=== PATIENT | female | born 1960 | race Caucasian/White ===

== ENCOUNTER → 2017-10-27 08:04 | Outpatient (CLI) | payer MEDICARE, MEDICAID, SELFPAY ==
[2017-10-27 12:46] LABS: Chol/HDL Ratio 2.3 (1-3.5); Cholesterol 178 mg/dL (140-200); HDL Cholesterol 76 mg/dL (29-89); LDL Cholesterol 87 mg/dL (0-130); Triglycerides 73 mg/dL (30-200); VLDL Cholesterol 15 mg/dL (0-40)
== END ==
PROVIDERS: PCP Family Medicine; Visit Provider Internal Medicine
DX: M06.9 Rheumatoid arthritis, unspecified (principal); Z79.899 Other long term (current) drug therapy; Z51.81 Encounter for therapeutic drug level monitoring
CPT/HCPCS: 36415; 80061

== ENCOUNTER → 2018-02-01 07:28 | Outpatient (CLI) | payer MEDICARE, MEDICAID, SELFPAY ==
[2018-02-01 07:40] LABS: Microscopic, Urine URINE MICROSCOPIC (MICROSCOPIC)
[2018-02-01 08:06] LABS: Appearance,Urine CLEAR (Clear); Bilirubin,Urine Negative (Negative); Blood, Urine Negative (Negative); Color,Urine YELLOW (Yellow); Glucose,Urine (UA) Negative (Negative); Ketones,Urine Negative (Negative); Leukocyte Esterase,Urine Negative (Negative); Nitrate,Urine Negative (Negative); PH,Urine 6.5 (5.0-8.5); Protein,Urine Negative (Negative); Specific Gravity, Urine 1.025 (1.005-1.030); Urobilinogen,Urine 0.2 EU/dl (0.2)
[2018-02-01 08:17] LABS: Bacteria,Urine 3+ /lpf; Mucus,Urine 1+ /lpf
[2018-02-01 08:37] LABS: Basophils # 0.1 K/mm3 (0-0.2); Eosinophils # 0.7 K/mm3 (0.0-0.4); Eosinophils % 11.1 % (0.1-12.0); Lymphocytes # 2.3 K/mm3 (0.7-4.5); Lymphocytes % 34.1 % (10-50); Mean Corpuscular HGB Conc 31.9 g/dL (31.8-35.4); Mean Corpuscular Hemoglobin 29.3 pg (27.0-31.2); Mean Corpuscular Volume 91.8 fl (81-99); Mean Platelet Volume 6.7 fl (7.4-10.4); Monocytes # 0.4 K/mm3 (0.1-1.0); Monocytes % 6.2 % (1.7-9.3); Neutrophils # 3.1 K/mm3 (1.8-7.8); Neutrophils % 46.6 % (37.0-80.0); Platelet Count 258 K/mm3 (142-424); Red Blood Count 5.12 M/mm3 (4.20-5.40); Red Cell Distribution Width 14.2 % (11.5-17.5); White Blood Count 6.7 K/mm3 (4.8-10.8)
[2018-02-01 09:50] LABS: Alanine Aminotransferase 46 U/L (12-78); Albumin Level 3.9 gm/dL (3.4-5.0); Albumin/Globulin Ratio 1.4 (1.1-1.8); Alkaline Phosphatase 79 U/L (46-116); Anion Gap 14.1 mEq/L (5-15); Aspartate Amino Transferase 26 U/L (15-37); Bilirubin,Total 0.7 mg/dL (0.2-1.0); Blood Urea Nitrogen 6 mg/dL (7-18); Calcium 9.2 mg/dL (8.5-10.1); Carbon Dioxide 27 mmol/L (21.0-32.0); Chloride 106 mmol/L (98-107); Chol/HDL Ratio 2.2 (1-3.5); Cholesterol 153 mg/dL (140-200); Creatinine,Serum 0.65 mg/dL (0.55-1.02); Estimated Glomerular Filt Rate 94 ml/min (>60); Free T4 (Free Thyroxine) 0.88 ng/dl (0.76-1.46); GFR (African American) 114 ML/MIN (>60); Globulin 2.7 gm/dl (1.3-3.2); Glucose 104 mg/dL (74-106); HDL Cholesterol 69 mg/dL (29-89); LDL Cholesterol 68 mg/dL (0-130); Potassium 4.1 mmoL/L (3.5-5.1); Sodium 143 mmol/L (136-145); Total Protein,Serum 6.6 gm/dL (6.4-8.2); Triglycerides 79 mg/dL (30-200); VLDL Cholesterol 16 mg/dL (0-40)
[2018-02-04 09:34] LABS: Vitamin D 25 Hydroxy 10.3 ng/mL (30.0-100.0)
== END ==
PROVIDERS: Visit Provider Family Medicine
DX: E78.5 Hyperlipidemia, unspecified (principal); I10 Essential (primary) hypertension; R53.83 Other fatigue; R35.1 Nocturia; R73.03 Prediabetes
CPT/HCPCS: 36415; 80053; 80061; 81001; 82652; 84439; 84443; 85025; 87086

== ENCOUNTER → 2019-07-08 13:21 | Outpatient (POV) | payer MEDICARE, MEDICAID, SELFPAY | PROVIDERS: PCP Family Medicine; Visit Provider Physician Assistant | DX: Z00.00 Encounter for general adult medical examination without abnormal findings (principal) ==

== ENCOUNTER → 2019-07-15 12:23 | Outpatient (CLI) | payer MEDICARE, MEDICAID, SELFPAY ==
[2019-07-15 14:44] LABS: Alanine Aminotransferase 29 U/L (12-78); Albumin Level 4.4 g/dl (3.5-5.0); Alkaline Phosphatase 75 U/L (38-126); Aspartate Amino Transferase 33 U/L (14-36); Bilirubin,Indirect 0.4 mg/dL (0.0-0.9); Bilirubin,Total 0.4 mg/dl (0.2-1.3); Bilirubin,Unconjugated 0.4 mg/dL (0.0-1.1); Total Protein,Serum 7.1 g/dl (6.3-8.2)
== END ==
PROVIDERS: Visit Provider Internal Medicine
DX: R76.8 Other specified abnormal immunological findings in serum (principal); B19.20 Unspecified viral hepatitis C without hepatic coma
CPT/HCPCS: 36415; 80076; 87522

== ENCOUNTER → 2019-07-21 13:44 | Outpatient (CLI) | payer MEDICARE, MEDICAID, SELFPAY ==
--- NOTE | 2019-07-21 14:02 | ECG_ITS ---
APPROVED REPORT Exam: Resting ECG HR:69 bpm ECG Measurements Heart Rate 69 AXES ME 140 P 62 QRSd 114 QRS 16 QT 374 T 26 QTc 400 <Conclusion> Normal sinus rhythm Possible Left atrial enlargement Incomplete right bundle branch block ST & T wave abnormality, consider anterior ischemia vs changes due to incomplete RBBB Abnormal ECG Electronically signed by : Avinash Zavaleta, 07/21/2019 15:43:57
== END ==
PROVIDERS: PCP Family Medicine; Visit Provider Colon & Rectal Surgery
DX: Z01.818 Encounter for other preprocedural examination (principal); K62.9 Disease of anus and rectum, unspecified
CPT/HCPCS: 93005

== ENCOUNTER → 2019-12-03 14:34 | Outpatient (CLI) | payer MEDICARE, MEDICAID, SELFPAY ==
[2019-12-03 16:18] LABS: Chloride 104 mmol/L (98-107); Potassium 4.2 mmoL/L (3.5-5.1); Sodium 140 mmol/L (136-145)
[2019-12-03 16:21] LABS: Alanine Aminotransferase 26 U/L (12-78); Albumin Level 4.1 g/dl (3.5-5.0); Albumin/Globulin Ratio 1.6 (1.1-1.8); Alkaline Phosphatase 56 U/L (38-126); Anion Gap 10.2 mEq/L (5-15); Aspartate Amino Transferase 37 U/L (14-36); Bilirubin,Total 0.5 mg/dl (0.2-1.3); Blood Urea Nitrogen 12 mg/dl (7-17); Carbon Dioxide 30 mmol/L (22.0-30.0); Estimated Glomerular Filt Rate 86 ml/min (>60); GFR (African American) 104 ML/MIN (>60); Globulin 2.5 g/dL (1.3-3.2); Total Protein,Serum 6.6 g/dl (6.3-8.2)
[2019-12-03 16:22] LABS: Calcium 9.9 mg/dl (8.4-10.2); Glucose 113 mg/dl (74-100)
== END ==
PROVIDERS: Visit Provider Internal Medicine
DX: Z51.81 Encounter for therapeutic drug level monitoring (principal)
CPT/HCPCS: 36415; 80053

== ENCOUNTER → 2020-03-10 07:05 | Outpatient (CLI) | payer MEDICARE, MEDICAID, SELFPAY ==
[2020-03-10 07:09] LABS: Microscopic, Urine URINE MICROSCOPIC (MICROSCOPIC)
[2020-03-10 08:48] LABS: Basophils % 0.8 % (0.1-2.0); Eosinophils # 0.1 K/mm3 (0.0-0.4); Eosinophils % 1.9 % (0.1-12.0); Hematocrit 41.7 % (37.0-47.0); Hemoglobin 13.9 g/dL (12.2-16.2); Lymphocytes # 1.7 K/mm3 (0.7-4.5); Lymphocytes % 32.6 % (10-50); Mean Corpuscular HGB Conc 33.3 g/dL (31.8-35.4); Mean Corpuscular Hemoglobin 30.9 pg (27.0-31.2); Mean Corpuscular Volume 92.6 fl (81-99); Mean Platelet Volume 7.7 fl (7.4-10.4); Monocytes # 0.4 K/mm3 (0.1-1.0); Monocytes % 7.4 % (1.7-9.3); Neutrophils % 57.4 % (37.0-80.0); Platelet Count 352 K/mm3 (142-424); Red Blood Count 4.51 M/mm3 (4.20-5.40); White Blood Count 5.2 K/mm3 (4.8-10.8)
[2020-03-10 08:57] LABS: Appearance,Urine CLEAR (Clear); Bilirubin,Urine Negative (Negative); Blood, Urine Negative (Negative); Color,Urine YELLOW (Yellow); Glucose,Urine (UA) Negative (Negative); Ketones,Urine Negative (Negative); Leukocyte Esterase,Urine Negative (Negative); Nitrate,Urine Negative (Negative); PH,Urine 8.5 (5.0-8.5); Protein,Urine Negative (Negative); Specific Gravity, Urine 1.015 (1.005-1.030); Urobilinogen,Urine 0.2 EU/dl (0.2)
[2020-03-10 09:04] LABS: Hemoglobin A1C 5.8 % (4.0-6.0)
[2020-03-10 09:40] LABS: 25-OH Vitamin D, Total 62.8 ng/mL (30-100); Free T4 (Free Thyroxine) 0.92 ng/dl (0.78-2.19)
[2020-03-10 09:42] LABS: Squamous Epithelial Cell,Urine Occasional #/hpf (0-5)
[2020-03-10 10:23] LABS: Alanine Aminotransferase 31 U/L (12-78); Albumin Level 4.5 g/dl (3.5-5.0); Albumin/Globulin Ratio 1.6 (1.1-1.8); Alkaline Phosphatase 54 U/L (38-126); Anion Gap 10.4 mEq/L (5-15); Aspartate Amino Transferase 37 U/L (14-36); Bilirubin,Total 0.8 mg/dl (0.2-1.3); Blood Urea Nitrogen 8 mg/dl (7-17); Calcium 9.9 mg/dl (8.4-10.2); Carbon Dioxide 32 mmol/L (22.0-30.0); Chloride 104 mmol/L (98-107); Chol/HDL Ratio 2.5 (1-3.5); Cholesterol 225 mg/dl (140-200); Estimated Glomerular Filt Rate 86 ml/min (>60); GFR (African American) 104 ML/MIN (>60); Globulin 2.8 g/dL (1.3-3.2); Glucose 104 mg/dl (74-100); HDL Cholesterol 91 mg/dl (40-60); Potassium 4.4 mmoL/L (3.5-5.1); Sodium 142 mmol/L (136-145); Total Protein,Serum 7.3 g/dl (6.3-8.2); Triglycerides 137 mg/dl (30-150); VLDL Cholesterol 27 mg/dL (0-40)
[2020-03-10 10:34] LABS: Direct LDL Cholesterol 86.99 mg/dL (100-129)
[2020-03-10 10:53] LABS: Thyroid Stimulating Hormone 0.78 uIU/mL (0.465-4.68)
== END ==
PROVIDERS: Visit Provider Family Medicine
DX: Z00.00 Encounter for general adult medical examination without abnormal findings (principal); I10 Essential (primary) hypertension; E78.5 Hyperlipidemia, unspecified; R53.83 Other fatigue; M06.9 Rheumatoid arthritis, unspecified; R35.1 Nocturia; Z79.899 Other long term (current) drug therapy
CPT/HCPCS: 36415; 80053; 80061; 81001; 82306; 83036; 84439; 84443; 85025

== ENCOUNTER → 2020-08-24 09:24 | Outpatient (CLI) | payer MEDICARE, MEDICAID, SELFPAY ==
--- NOTE | 2020-08-24 09:29 | MM_ITS ---
PROCEDURE INFORMATION: Exam: MG Screening 3D Mammography Exam date and time: 08/24/2020 9:29 AM Age: 60 years old Clinical indication: Encounter for screening mammogram for malignant neoplasm of breast TECHNIQUE: Imaging protocol: Screening tomosynthesis and 2D mammography including computer-aided detection (CAD) when performed. COMPARISON: MG MM MAMMO DIGITAL DOMINIC SCREEN BILAT 07/17/2019 10:11 AM FINDINGS: MAMMOGRAPHY: Breast composition: The breast tissue is heterogeneously dense, which may obscure small masses. Mass: None. Architectural distortion: None. Calcifications: No suspicious calcifications. Asymmetric density: None. Skin thickening: None. Axillary adenopathy: None. IMPRESSION: No mammographic evidence of malignancy. Annual screening is recommended unless otherwise clinically indicated. ASSESSMENT: BI-RADS Category 1: Negative
== END ==
PROVIDERS: PCP Family Medicine; Visit Provider Family Medicine
DX: Z12.31 Encounter for screening mammogram for malignant neoplasm of breast (principal)
CPT/HCPCS: 77063; 77067

== ENCOUNTER → 2021-07-07 07:14 | Outpatient (CLI) | payer MEDICARE, MEDICAID, SELFPAY ==
[2021-07-07 07:24] LABS: Microscopic, Urine URINE MICROSCOPIC (MICROSCOPIC)
[2021-07-07 07:41] LABS: Appearance,Urine CLEAR (Clear); Bilirubin,Urine Negative (Negative); Blood, Urine Negative (Negative); Color,Urine YELLOW (Yellow); Glucose,Urine (UA) Negative (Negative); Ketones,Urine Negative (Negative); Leukocyte Esterase,Urine Negative (Negative); Nitrate,Urine Negative (Negative); Protein,Urine Negative (Negative); Specific Gravity, Urine 1.015 (1.005-1.030); Urobilinogen,Urine 0.2 EU/dl (0.2)
[2021-07-07 07:45] LABS: Basophils # 0.2 K/mm3 (0-0.2); Basophils % 5.2 % (0.1-2.0); Eosinophils # 0.1 K/mm3 (0.0-0.4); Eosinophils % 2.3 % (0.1-12.0); Hematocrit 43.9 % (37.0-47.0); Hemoglobin 14.6 g/dL (12.2-16.2); Lymphocytes # 1.2 K/mm3 (0.7-4.5); Lymphocytes % 26.7 % (10-50); Mean Corpuscular HGB Conc 33.3 g/dL (31.8-35.4); Mean Corpuscular Hemoglobin 32.3 pg (27.0-31.2); Mean Platelet Volume 7.4 fl (7.4-10.4); Monocytes # 0.4 K/mm3 (0.1-1.0); Monocytes % 8.3 % (1.7-9.3); Neutrophils # 2.9 K/mm3 (1.8-7.8); Neutrophils % 62.8 % (37.0-80.0); Platelet Count 305 K/mm3 (142-424); Red Blood Count 4.52 M/mm3 (4.20-5.40); Red Cell Distribution Width 14.1 % (11.5-17.5); White Blood Count 4.6 K/mm3 (4.8-10.8)
[2021-07-07 08:24] LABS: WBC,Urine Occasional #/hpf (0-3)
[2021-07-07 08:25] LABS: Bacteria,Urine Trace /lpf; Hemoglobin A1C 5.6 % (4.0-6.0)
[2021-07-07 08:32] LABS: Chloride 106 mmol/L (98-107); Sodium 140 mmol/L (136-145)
[2021-07-07 08:33] LABS: Potassium 4.4 mmoL/L (3.5-5.1)
[2021-07-07 08:35] LABS: Alanine Aminotransferase 30 U/L (12-78); Anion Gap 10.4 mEq/L (5-15); Aspartate Amino Transferase 36 U/L (14-36); Blood Urea Nitrogen 14 mg/dl (7-17); Carbon Dioxide 28 mmol/L (22.0-30.0); Estimated Glomerular Filt Rate 85 ml/min (>60); GFR (African American) 103 ML/MIN (>60)
[2021-07-07 08:36] LABS: Albumin Level 4.2 g/dl (3.5-5.0); Albumin/Globulin Ratio 1.8 (1.1-1.8); Alkaline Phosphatase 78 U/L (38-126); Bilirubin,Total 0.7 mg/dl (0.2-1.3); Calcium 10.1 mg/dl (8.4-10.2); Cholesterol 247 mg/dl (140-200); Globulin 2.4 g/dL (1.3-3.2); Glucose 118 mg/dl (74-100); Total Protein,Serum 6.6 g/dl (6.3-8.2); Triglycerides 118 mg/dl (30-150); VLDL Cholesterol 24 mg/dL (0-40)
[2021-07-07 08:44] LABS: Chol/HDL Ratio 2.3 (1-3.5); HDL Cholesterol 109 mg/dl (40-60)
[2021-07-07 08:53] LABS: Free T4 (Free Thyroxine) 0.88 ng/dl (0.78-2.19)
[2021-07-07 09:06] LABS: Thyroid Stimulating Hormone 0.85 uIU/mL (0.465-4.68)
[2021-07-07 09:39] LABS: 25-OH Vitamin D, Total 50.6 ng/mL (30-100)
== END ==
PROVIDERS: Visit Provider Family Medicine
DX: I10 Essential (primary) hypertension (principal); E78.5 Hyperlipidemia, unspecified; R53.83 Other fatigue; M06.9 Rheumatoid arthritis, unspecified; R35.1 Nocturia; Z79.899 Other long term (current) drug therapy
CPT/HCPCS: 36415; 80053; 80061; 81001; 82306; 83036; 84439; 84443; 85025

== ENCOUNTER → 2021-07-08 08:19 | Outpatient (CLI) | payer MEDICARE, MEDICAID, SELFPAY ==
--- NOTE | 2021-07-08 08:23 | CT_ITS ---
FINAL REPORT CLINICAL HISTORY: . HX SMOKER QUIT 13 YEARS AGO 1.5PPD 21+ YEARS FINDINGS: Low-Dose Chest CT CTDI vol (mGy): 2.90 DLP (mGy-cm): 96.90 Axial images were obtained from the lung apex to the mid abdomen by computed tomography. Low-dose protocol was utilized. FINDINGS: CHEST: There is no axillary adenopathy. There is no hilar or mediastinal adenopathy. There is a pre-vascular lymph node measuring 1 cm on image 29. The heart is proper size. There are moderate coronary artery calcifications. There is no pericardial or pleural effusion. Limited images of the upper abdomen are unremarkable. Lung window images demonstrate a 4 mm nodule in the periphery of the right upper lobe on images 16 of series 4. There is a 4 mm nodule in the posterior right apex on image 9 of series 4. IMPRESSION: Right upper lobe nodules as described. Lung RADS category 2. Recommend 12 month follow-up low-dose chest CT. Reviewed, Interpreted and Dictated by Zack Hudson MD Transcribed by Ade Sutton Authenticated by Zack Hudson MD on 07/08/2021 09:18:10 AM [facility]
--- NOTE | 2021-07-08 08:24 | XR_ITS ---
FINAL REPORT TECHNIQUE: Bone densitometry calculations of the lumbar spine and left hip were obtained. CLINICAL HISTORY: . post menopausal screening FINDINGS: DEXA BONE DENSITY AXIAL SKELETON Using L1-4, the bone mineral density of the spine is 0.758 g/cm2, corresponding to T-score of -2.6. Using the left hip, the bone mineral density of the femoral neck is 0.603 g/cm2, corresponding to a T-score of -2.8. Using the right hip, the bone mineral density of the femoral neck is 0.539 g/cm2, corresponding to a T-score of -2.8. NOTE: T-score: Standard deviation compared with peak bone mass of young adult mean. *Following the recommendations of the International Society of Bone Densitometry, classification of hip BMD is based on the lower of two T-scores; total hip or femoral neck. IMPRESSION: Osteoporosis: Lowest T-score is at or below -2.5. This patient's T-score meets the World Health Organization criteria for osteoporosis. Reviewed, Interpreted and Dictated by Zack Hudson MD Transcribed by Ade Sutton Authenticated by Zack Hudson MD on 07/08/2021 10:42:29 AM [facility]
== END ==
PROVIDERS: PCP Family Medicine; Visit Provider Family Medicine
DX: Z87.891 Personal history of nicotine dependence (principal); Z12.2 Encounter for screening for malignant neoplasm of respiratory organs; Z78.0 Asymptomatic menopausal state
CPT/HCPCS: 71271; 77080

== ENCOUNTER → 2021-09-16 09:50 | Outpatient (CLI) | payer MEDICARE, MEDICAID, SELFPAY ==
--- NOTE | 2021-09-16 09:55 | MM_ITS ---
PROCEDURE INFORMATION: Exam: MG Bilateral Screening 3D Mammography Exam date and time: 09/16/2021 9:52 AM Age: 61 years old Clinical indication: Screening examination TECHNIQUE: Imaging protocol: Bilateral Screening tomosynthesis and 2D mammography including computer-aided detection (CAD) when performed. COMPARISON: 1. MG MM DIG SCREENING MAMM BI W/CAD 08/24/2020 9:32 AM 2. MG MM MAMMO DIGITAL DOMINIC SCREEN BILAT 07/17/2019 10:11 AM FINDINGS: MAMMOGRAPHY: Breast composition: There are scattered areas of fibroglandular density. Mass: None. Architectural distortion: None. Calcifications: No suspicious calcifications. Asymmetric density: None. Skin thickening: None. Axillary adenopathy: None. IMPRESSION: No mammographic evidence of malignancy. Annual screening is recommended unless otherwise clinically indicated. ASSESSMENT: BI-RADS Category 1: Negative
== END ==
PROVIDERS: PCP Family Medicine; Visit Provider Family Medicine
DX: Z12.31 Encounter for screening mammogram for malignant neoplasm of breast (principal)
CPT/HCPCS: 77063; 77067

== ENCOUNTER → 2022-03-09 06:27 | Outpatient (CLI) | payer MEDICARE, MEDICAID, SELFPAY ==
[2022-03-09 08:21] LABS: Basophils # 0.1 K/mm3 (0-0.2); Basophils % 1.2 % (0.1-2.0); Eosinophils # 0.1 K/mm3 (0.0-0.4); Eosinophils % 1.8 % (0.1-12.0); Hematocrit 42.3 % (37.0-47.0); Hemoglobin 13.3 g/dL (12.2-16.2); Lymphocytes # 1.4 K/mm3 (0.7-4.5); Lymphocytes % 33.4 % (10-50); Mean Corpuscular HGB Conc 31.4 g/dL (31.8-35.4); Mean Corpuscular Hemoglobin 29.6 pg (27.0-31.2); Mean Corpuscular Volume 94.3 fl (81-99); Monocytes # 0.4 K/mm3 (0.1-1.0); Monocytes % 9.4 % (1.7-9.3); Neutrophils # 2.3 K/mm3 (1.8-7.8); Neutrophils % 54.3 % (37.0-80.0); Platelet Count 407 K/mm3 (142-424); Red Blood Count 4.48 M/mm3 (4.20-5.40); Red Cell Distribution Width 13.9 % (11.5-17.5); White Blood Count 4.2 K/mm3 (4.8-10.8)
[2022-03-09 08:40] LABS: Chloride 105 mmol/L (98-107); Potassium 4.4 mmoL/L (3.5-5.1); Sodium 142 mmol/L (136-145)
[2022-03-09 08:42] LABS: Blood Urea Nitrogen 12 mg/dl (7-17); Estimated Glomerular Filt Rate 85 ml/min (>60); GFR (African American) 103 ML/MIN (>60)
[2022-03-09 08:43] LABS: Alanine Aminotransferase 28 U/L (12-78); Albumin Level 4.2 g/dl (3.5-5.0); Albumin/Globulin Ratio 1.8 (1.1-1.8); Alkaline Phosphatase 59 U/L (38-126); Anion Gap 11.4 mEq/L (5-15); Aspartate Amino Transferase 32 U/L (14-36); Bilirubin,Total 0.4 mg/dl (0.2-1.3); Calcium 9.4 mg/dl (8.4-10.2); Carbon Dioxide 30 mmol/L (22.0-30.0); Cholesterol 220 mg/dl (140-200); Globulin 2.4 g/dL (1.3-3.2); Glucose 90 mg/dl (74-100); HDL Cholesterol 74 mg/dl (40-60); Total Protein,Serum 6.6 g/dl (6.3-8.2); Triglycerides 62 mg/dl (30-150); VLDL Cholesterol 12 mg/dL (0-40)
[2022-03-09 08:54] LABS: Direct LDL Cholesterol 103.42 mg/dL (100-129)
[2022-03-09 09:14] LABS: Thyroid Stimulating Hormone 0.28 uIU/mL (0.465-4.68)
[2022-03-14 23:43] LABS: 1,25 Dihydroxy Vitamin D 52 pg/mL (.); 1,25-Dihydroxy, Vitamin D-2 <10 pg/mL (.); 1,25-Dihydroxy, Vitamin D-3 51 pg/mL (.)
== END ==
PROVIDERS: PCP Family Medicine; Visit Provider Family Medicine
DX: M81.0 Age-related osteoporosis without current pathological fracture (principal); I10 Essential (primary) hypertension; E78.5 Hyperlipidemia, unspecified; J44.9 Chronic obstructive pulmonary disease, unspecified; M06.9 Rheumatoid arthritis, unspecified; R91.1 Solitary pulmonary nodule; Z12.11 Encounter for screening for malignant neoplasm of colon
CPT/HCPCS: 36415; 80053; 80061; 82652; 84443; 85025

== ENCOUNTER → 2022-06-16 09:56 | Outpatient (CLI) | payer MEDICARE, MEDICAID, SELFPAY ==
[2022-06-16 11:03] LABS: Alanine Aminotransferase 50 U/L (12-78); Albumin Level 4.5 g/dl (3.5-5.0); Albumin/Globulin Ratio 1.9 (1.1-1.8); Alkaline Phosphatase 85 U/L (38-126); Anion Gap 7.6 mEq/L (5-15); Aspartate Amino Transferase 57 U/L (14-36); Bilirubin,Total 0.9 mg/dl (0.2-1.3); Blood Urea Nitrogen 13 mg/dl (7-17); Calcium 9.6 mg/dl (8.4-10.2); Carbon Dioxide 28 mmol/L (22.0-30.0); Chloride 105 mmol/L (98-107); Cholesterol 195 mg/dl (140-200); Estimated Glomerular Filt Rate 85 ml/min (>60); GFR (African American) 103 ML/MIN (>60); Globulin 2.4 g/dL (1.3-3.2); Glucose 103 mg/dl (74-100); HDL Cholesterol 96 mg/dl (40-60); Potassium 4.6 mmoL/L (3.5-5.1); Sodium 136 mmol/L (136-145); Total Protein,Serum 6.9 g/dl (6.3-8.2); Triglycerides 75 mg/dl (30-150); VLDL Cholesterol 15 mg/dL (0-40)
[2022-06-16 11:15] LABS: Direct LDL Cholesterol 78.23 mg/dL (100-129)
[2022-06-16 11:35] LABS: Thyroid Stimulating Hormone 0.41 uIU/mL (0.465-4.68)
== END ==
PROVIDERS: PCP Family Medicine; Visit Provider Family Medicine
DX: E78.5 Hyperlipidemia, unspecified (principal); I10 Essential (primary) hypertension; J44.9 Chronic obstructive pulmonary disease, unspecified; M06.9 Rheumatoid arthritis, unspecified; M81.0 Age-related osteoporosis without current pathological fracture; R91.1 Solitary pulmonary nodule
CPT/HCPCS: 36415; 80053; 80061; 84443

== ENCOUNTER → 2022-07-18 14:32 | Outpatient (CLI) | payer MEDICARE, MEDICAID, SELFPAY ==
--- NOTE | 2022-07-18 14:32 | CT_ITS ---
FINAL REPORT TECHNIQUE: Axial CT images were performed from the lung apices through the upper abdomen. Coronal reformats were submitted. This study was performed with techniques to keep radiation doses as low as reasonably achievable (ALARA). Individualized dose reduction techniques using automated exposure control or adjustment of mA and/or kV according to the patient's size were employed. CLINICAL HISTORY: lung nudule COMPARISON: 07/08/2021 FINDINGS: There is no axillary adenopathy. There is a 10 mm node in the anterior mediastinum which is stable. There is moderate coronary artery calcification. Heart size is normal. There is no pericardial or pleural effusion. Limited images of the upper abdomen are unremarkable. There is a stable 4 mm lateral right upper lobe nodule well seen on image 15. There is a stable 4 mm nodule in the right apex. There are subacute right 4th and 5th anterior rib fractures. There is also a subacute left 6th lateral rib fracture. IMPRESSION: Stable nodules as detailed above. Subacute bilateral rib fractures. Reviewed, Interpreted and Dictated by Raheem Gr III, MD Transcribed by Ruchi Nguyễn Authenticated and [facility]
== END ==
PROVIDERS: PCP Nurse Practitioner Family; Visit Provider Family Medicine
DX: R91.1 Solitary pulmonary nodule (principal)
CPT/HCPCS: 71250

== ENCOUNTER → 2022-09-20 15:47 | Outpatient (CLI) | payer MEDICARE, MEDICAID, SELFPAY ==
--- NOTE | 2022-09-20 15:49 | MM_ITS ---
PROCEDURE INFORMATION: Exam: MG Bilateral Screening 3D Mammography Exam date and time: 09/20/2022 3:44 PM Age: 62 years old Clinical indication: Screening examination TECHNIQUE: Imaging protocol: Bilateral Screening tomosynthesis and 2D mammography including computer-aided detection (CAD) when performed. COMPARISON: 1. MG MM DIG SCREENING MAMM BI W/CAD 09/16/2021 9:52 AM 2. MG MM DIG SCREENING MAMM BI W/CAD 08/24/2020 9:32 AM FINDINGS: MAMMOGRAPHY: Breast composition: The breasts are heterogeneously dense, which may obscure small masses. Mass: None. Architectural distortion: None. Calcifications: No suspicious calcifications. Asymmetric density: None. Skin thickening: None. Axillary adenopathy: None. IMPRESSION: No mammographic evidence of malignancy. Annual screening is recommended unless otherwise clinically indicated. ASSESSMENT: BI-RADS Category 1: Negative
== END ==
PROVIDERS: PCP Nurse Practitioner Family; Visit Provider Nurse Practitioner Family
DX: Z12.31 Encounter for screening mammogram for malignant neoplasm of breast (principal)
CPT/HCPCS: 77063; 77067

== ENCOUNTER → 2022-10-04 07:23 | Outpatient (CLI) | payer MEDICARE, MEDICAID, SELFPAY ==
[2022-10-04 09:19] LABS: Alanine Aminotransferase 29 U/L (12-78); Albumin Level 3.9 g/dl (3.5-5.0); Albumin/Globulin Ratio 1.6 (1.1-1.8); Alkaline Phosphatase 63 U/L (38-126); Anion Gap 7.7 mEq/L (5-15); Aspartate Amino Transferase 34 U/L (14-36); Bilirubin,Total 0.4 mg/dl (0.2-1.3); Blood Urea Nitrogen 8 mg/dl (7-17); Calcium 9.2 mg/dl (8.4-10.2); Carbon Dioxide 32 mmol/L (22.0-30.0); Chloride 108 mmol/L (98-107); Cholesterol 198 mg/dl (140-200); Estimated Glomerular Filt Rate 101 ml/min (>60); GFR (African American) 123 ML/MIN (>60); Globulin 2.4 g/dL (1.3-3.2); Glucose 94 mg/dl (74-100); HDL Cholesterol 101 mg/dl (40-60); Potassium 4.7 mmoL/L (3.5-5.1); Sodium 143 mmol/L (136-145); Total Protein,Serum 6.3 g/dl (6.3-8.2); Triglycerides 64 mg/dl (30-150); VLDL Cholesterol 13 mg/dL (0-40)
[2022-10-04 09:31] LABS: Direct LDL Cholesterol 86.65 mg/dL (100-129)
[2022-10-04 10:19] LABS: Thyroid Stimulating Hormone 0.73 uIU/mL (0.465-4.68)
== END ==
PROVIDERS: PCP Nurse Practitioner Family; Visit Provider Family Medicine
DX: I10 Essential (primary) hypertension (principal); R79.89 Other specified abnormal findings of blood chemistry; E78.5 Hyperlipidemia, unspecified
CPT/HCPCS: 36415; 80053; 80061; 84443

== ENCOUNTER → 2022-10-11 07:35 | Outpatient (CLI) | payer MEDICARE, MEDICAID, SELFPAY ==
--- NOTE | 2022-10-11 07:35 | NM_ITS ---
APPROVED REPORT Exam: Nuclear Stress Test Indication: soa Patient Location: Outpatient Stress Tech: Sommer Cam PR Tech:DUC Verde RT(R)(N) Ht: 5 ft 0 in Wt: 130 lbs Bra Size: 38b HR: 74 bpm BP: 160/70 mmHg BSA: 1.55 m2 Rhythm: NSR TID: 1.13 History: soa Procedure: Patient exercised on Erik protocol 6:31 minutes and sec, resting heart rate 74 bpm, resting blood pressure 160/70 mmHg, with exercise maximum heart rate achived was 158 bpm which is 100 % of the maximum predicted heart rate and blood pressure was 250/70 mmHg. Test was stopped due to high blood pressure. Patient denied any complaint of chest pain. Patient has poor exercise capacity, achieved 7.0 METs of workload on treadmill, the blood pressure response to exercise was exaggerated. Cardiac Stress and Resting SPECT Images: Cardiac Stress and Resting SPECT images were obtained using technetium 99m Myoview 31.3 mCi stress and 10.09 mCi at rest. Resting and stress imaging in both supine and prone positions demonstrate a small-sized, mild, fixed perfusion defect in the mid-inferior LV wall. Gated imaging demonstrates normal global and regional LV systolic function. LVEF is calculated at 56%. Conclusion: Small-sized, mild, fixed perfusion defect in the mid-inferior LV wall. No evidence of reversible ischemia. Gated imaging demonstrates normal global and regional LV systolic function. LVEF is calculated at 56%. Electronically signed by : Sarah Crawford, 10/14/2022 17:00:44
--- NOTE | 2022-10-11 09:44 | CA_ITS ---
APPROVED REPORT Exam: Exercise Treadmill Technologist: Sommer Arceo, Ht: 5 ft 0 in Wt: 132 lbs BSA: 1.56 m2 HR: 70 bpm BP: 145/65 mmHg Rhythm: NSR Medical History Medications: Amlodipine,,,,, Atorvastatin,,,,, Albuterol,,,,, Leflunomide,,,,, ANoro Ellipta,,,,, Imiquimod 3.75%,,,,, Upadacitinin ER,,,,, Stress Test Details Test: Erik HR Resting HR: 74 bpm Max Heart Rate (APMHR): 158 bpm Max HR Achieved: 158 bpm Target HR (85% APMHR): 134 bpm % of APMHR: 100 Recovery HR: 85 bpm HR response to stress: Normal HR response to stress BP Resting BP: 160.0/70.0 mmHg Max BP: 250.0/70.0 mmHg Recovery BP: 137.0/60.0 mmHg BP response to stress: Abnormal hypertensive response to stress. ECG Resting ECG: NSR, RBBB Stress ECG: < 1mm ST depression in inferior leads Arrhythmia: PVCs, ventricular triplet Recovery ECG: Return to baseline within 3 minutes of recovery Recovery Arrhythmia: PVCs Clinical Exercise duration: 06:31 min Highest Stage Achieved: III Exercise capacity: 7.0 METs Overall Exercise Capacity for Age: Poor Stress ECG Conclusion The patient was able to exercise for a total of 6:30 on Erik protocol. Stage II held to completion. She achieved a total of 7 METs. She has poor exercise capacity compared to age and sex matched peers. Test was stopped due to excessively high BP. She has normal HR, but exaggerated BP, response to exercise. Max HR: 145 % of PM: 92% Max BP: 250/70 mmHg METs 7.0 Test stopped due to: Blood pressure. SOA Symptoms: No CP. Arrhythmias/Ectopy: Rare PAC. Occ PVC. [address]-T Changes: < 1mm horizontal ST depression inferiorly. Conclusion: Poor exercise capacity. Equivocal EKG changes with no CP. Ventricular triplet was noted at peak stress. Exaggerated BP response to exercise. Myoview images reported separately. Test Summary REST . . . . . . . Sitting REST . . . . . . . Standing REST 04:51 0.0 0.0 74 . 160/ 70 . . Stage 1 01:00 10.0 1.7 95 . . . . Stage 1 02:00 10.0 1.7 107 . . . . Stage 1 03:00 10.0 1.7 110 . . . . Stage 2 01:00 12.0 2.5 119 . 230/ 70 . . Stage 2 02:00 12.0 2.5 126 . 230/ 70 . . Stage 2 . . . . . . . Stage held Stage 2 03:00 12.0 2.5 132 . 250/ 70 . . Stage 2 . . . . . . . Stage resumed Stage 2 03:31 12.0 2.5 158 . 250/ 70 . Stop exercise at 06:31 RECOVERY 01:00 0.0 0.0 132 . . . . RECOVERY 02:00 0.0 0.0 106 . . . . RECOVERY 03:00 0.0 0.0 85 . 194/ 73 . . RECOVERY 04:00 0.0 0.0 98 . 150/ 61 . . RECOVERY 05:00 0.0 0.0 85 . 137/ 60 . . RECOVERY 06:00 0.0 0.0 82 . 137/ 60 . . RECOVERY 07:00 0.0 0.0 78 . 137/ 60 . . RECOVERY 07:25 0.0 0.0 82 . 137/ 60 . . Electronically signed by : Sarah Crawford, 10/14/2022 16:57:41
== END ==
PROVIDERS: PCP Nurse Practitioner Family; Visit Provider Nurse Practitioner Family
DX: I25.10 Atherosclerotic heart disease of native coronary artery without angina pectoris (principal); R06.02 Shortness of breath
CPT/HCPCS: 78452; 93017; A9502

== ENCOUNTER → 2022-11-08 11:29 | Outpatient (CLI) | payer MEDICARE, MEDICAID, SELFPAY ==
--- NOTE | 2022-11-08 11:31 | CA_ITS ---
APPROVED REPORT EXAM: Comprehensive 2D, Doppler, and color-flow Echocardiogram Java Integration Developer: Deedee Ward, CIERRA, RVS Ht: 5 ft 0 in Wt: 132lbs BSA: 1.56 BP: 154/73 mmHg Indications: COPD, SOA, Smoker, Abn Stress test 2D Dimensions Aortic Root 2.76 cm LA Volume 37.60 mL Left Atrium 3.08 cm LA Volume Index 24.430757 mL/m2 (M/F) 16-34 LVOT 1.64 cm (M/F) 1.5-2.5 M-Mode Dimensions RVDd 1.34 cm (0.9-2.6) LA Diam 3.53 cm (1.9-4.0) LVDd 4.94 cm (3.5-5.7) Ao Diam 2.94 cm (2.0-3.7) LVDs 3.32 cm (3.5-5.7) IVSd 1.11 cm (0.6-1.1) PWd 1.11 cm (0.6-1.1) EF (Teich) 61.00% EPSs 1.01 cm FS 32.80% EDV (Teich) 115.00 mL TAPSE 1.68 (<1.7) ESV (Teich) 44.80 mL LV Diastology E Decel Time 180.00 (160-240 msec) E/A Ratio 1.97 MED E' 9.20 (< 7 cm/sec) MED A' 7.70 cm/s E'/MED E' Ratio 12.58 (>14) LAT E' 9.40 (<10 cm/sec) LAT A' 6.30 cm/s E/LAT E' Ratio 12.31 (>14) Aortic Valve LVOT Max 114.00 (70-110 cm/s) LVOT VTI 24.68 cm AoV Peak Graham. 121.00 (50-130 cm/s) AO Peak GR. 5.80 mmHg AO Mean GR. 2.90 (<5 mmHg) AO VTI 29.68 (18-25 cm) ZOILA (VTI) 1.76 (2.5-4.5 cm2) Mitral Valve MV A Velocity 59.00 (40-130 cm/s) E/A Ratio 1.97 MV Decel. Time 180.00 (160-240 ms) MV Mean Gr. 1.20 (<2mmHg) Pulmonary Valve PV Peak Velocity 71.00 (50-150 cm/s) Tricuspid Valve TR P. Velocity 243.00 cm/s RAP Estimate 10.00 mmHg RVSP 33.60 mmHg Left Ventricle The left ventricle is normal size. The left ventricular systolic function is normal. The left ventricular ejection fraction is within the normal range. There is normal left ventricular wall thickness. There is mild hypokinesis of the septal and inferoseptal LV reardon. The left ventricular diastolic function is normal. LVEF is 55%. Right Ventricle The right ventricle is normal size. The right ventricular systolic function is normal. Atria The left atrium size is normal. The right atrium size is normal. There is no Doppler evidence of interatrial shunt. Aortic Valve The aortic valve is mildly thickened. There is no aortic valvular stenosis. Trace aortic regurgitation. Mitral Valve The mitral valve is normal in structure. No evidence of mitral valve stenosis. Mild mitral regurgitation. Tricuspid Valve The tricuspid valve leaflets are thin and pliable. Mild tricuspid regurgitation. RVSP is 20-25 mmHg. Pulmonic Valve The pulmonary valve is normal in structure. Trace pulmonic regurgitation. Great Vessels The aortic root is normal in size. The ascending aorta is normal in size. IVC is normal in size and collapses >50% with inspiration. Pericardium There is no pericardial effusion. Other Information Study Quality: Fair Conclusion Normal biventricular systolic function. Mild hypokinesis of the septal and inferoseptal LV reardon. Mild MR. Mild TR. RVSP 20-25 mmHg. Electronically signed by : Sarah Crawford, 11/13/2022 23:39:00
== END ==
PROVIDERS: PCP Nurse Practitioner Family; Visit Provider Nurse Practitioner Family
DX: I25.10 Atherosclerotic heart disease of native coronary artery without angina pectoris (principal); R06.02 Shortness of breath
CPT/HCPCS: 93306

== ENCOUNTER 2022-11-15 07:39 | Day surgery (SDC) | payer MEDICARE, MEDICAID, SELFPAY ==
[2022-11-15] VITALS (11 sets, daily range): BP systolic 99–143; BP diastolic 46–80; PULSE 48–99; RESP 16–20; O2SAT 94–99; BMI 25.7
--- NOTE | 2022-11-15 07:08 | IR_ITS ---
APPROVED REPORT Patient Location: Outpatient PROCEDURES Left heart catheterization Left ventriculogram Selective coronary angiogram INDICATION Abnormal Myoview, Angina pectoris Informed consent was obtained prior to the procedure. COMPLICATIONS None Estimated Blood Loss: Less than 10 mls TECHNIQUE One percent lidocaine used to anesthetize the right anterior aspect of the wrist. The right radial artery was accessed via the Seldinger technique. A 6 Pakistani sheath was placed in the right radial artery. 2.5 mg of Verapamil, 800 mcg of nitroglycerin, 1mg Lidocaine and 5000 U Heparin were given through the arterial sheath. The papa catheter was also used to perform left heart catheterization, left ventriculogram and selective coronary angiogram. At the end of the procedure the sheath was removed good hemostasis was achieved using Traclet band, patient was transferred to the postop holding area in stable condition. ANGIOGRAPHIC RESULTS The left main artery Normal The left anterior descending artery The proximal mid and distal segments are free of atherosclerotic plaque. 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 Continue medical management Electronically signed by : Khoa Vargas MD 11/15/2022 09:34:47
[2022-11-15 08:43] LABS: Anion Gap 10.3 mEq/L (5-15); Basophils % 0.6 % (0.1-2.0); Blood Urea Nitrogen 12 mg/dl (7-17); Calcium 9.3 mg/dl (8.4-10.2); Carbon Dioxide 30 mmol/L (22.0-30.0); Chloride 106 mmol/L (98-107); Creatinine Clearance Estimated 55 mL/min (50-200); Eosinophils # 0.1 K/mm3 (0.0-0.4); Eosinophils % 1.2 % (0.1-12.0); Estimated Glomerular Filt Rate 73 ml/min (>60); GFR (African American) 88 ML/MIN (>60); Glucose 106 mg/dl (74-100); Hematocrit 43.3 % (37.0-47.0); Hemoglobin 13.5 g/dL (12.2-16.2); Lymphocytes # 1.5 K/mm3 (0.7-4.5); Lymphocytes % 20.1 % (10-50); Mean Corpuscular HGB Conc 31.2 g/dL (31.8-35.4); Mean Corpuscular Hemoglobin 29.9 pg (27.0-31.2); Mean Corpuscular Volume 95.8 fl (81-99); Mean Platelet Volume 7.9 fl (7.4-10.4); Monocytes # 0.6 K/mm3 (0.1-1.0); Monocytes % 7.8 % (1.7-9.3); Neutrophils # 5.3 K/mm3 (1.8-7.8); Neutrophils % 70.4 % (37.0-80.0); Platelet Count 290 K/mm3 (142-424); Potassium 4.3 mmoL/L (3.5-5.1); Red Blood Count 4.52 M/mm3 (4.20-5.40); Red Cell Distribution Width 13.6 % (11.5-17.5); Sodium 142 mmol/L (136-145); White Blood Count 7.6 K/mm3 (4.8-10.8)
== END 2022-11-15 12:20 | disposition home or self-care (01) ==
PROVIDERS: PCP Nurse Practitioner Family; Visit Provider Internal Medicine
DX: E78.5 Hyperlipidemia, unspecified (principal); I10 Essential (primary) hypertension; J44.9 Chronic obstructive pulmonary disease, unspecified; R06.02 Shortness of breath; I25.118 Atherosclerotic heart disease of native coronary artery with other forms of angina pectoris; Z79.899 Other long term (current) drug therapy
CPT/HCPCS: 80048; 85025; 93458; 99152; C1725; C1769; J1644; Q9967

== ENCOUNTER → 2023-01-04 12:23 | Outpatient (CLI) | payer MEDICARE, SELFPAY ==
[2023-01-04 13:20] VITALS: PULSE 56; PULSE 62
== END ==
LOC: RT 12:23
PROVIDERS: PCP Nurse Practitioner Family; Visit Provider Internal Medicine Pulmonary Disease
DX: R06.09 Other forms of dyspnea (principal)
CPT/HCPCS: 94060; 94618; 94640; 94727; 94729

== ENCOUNTER 2023-05-10 16:59 | Outpatient (CLI) | payer MEDICARE, SELFPAY ==
[2023-05-10 17:44] LABS: Amphetamine/Metha Screen,Urine Negative ng/ml (<1000)
[2023-05-10 17:45] LABS: Barbiturates Screen,Urine Negative ng/ml (<200); Benzodiazepines Screen,Urine Negative ng/ml (<200)
[2023-05-10 17:46] LABS: Cannabinoid Screen,Urine Positive ng/ml (<50); Cocaine Screen,Urine Negative ng/ml (<300)
[2023-05-10 17:47] LABS: Methadone Screen,Urine Negative ng/ml (<300)
[2023-05-10 17:48] LABS: Opiate Screen,Urine Negative ng/ml (<300); Phencyclidine Screen,Urine Negative ng/ml (<25)
== END 2023-05-10 23:59 ==
LOC: LAB.DROPOF 17:00
PROVIDERS: PCP Nurse Practitioner Obstetrics & Gynecology; Visit Provider Nurse Practitioner Obstetrics & Gynecology
DX: Z79.899 Other long term (current) drug therapy (principal)
CPT/HCPCS: 80307

== ENCOUNTER 2023-06-07 16:17 | Outpatient (CLI) | payer MEDICARE, SELFPAY ==
[2023-06-07 18:13] LABS: Benzodiazepines Screen,Urine Negative ng/ml (<200)
[2023-06-07 18:14] LABS: Amphetamine/Metha Screen,Urine Negative ng/ml (<1000); Barbiturates Screen,Urine Negative ng/ml (<200)
[2023-06-07 18:15] LABS: Cannabinoid Screen,Urine Positive ng/ml (<50)
[2023-06-07 18:16] LABS: Cocaine Screen,Urine Negative ng/ml (<300); Methadone Screen,Urine Negative ng/ml (<300)
[2023-06-07 18:17] LABS: Opiate Screen,Urine Negative ng/ml (<300)
[2023-06-07 18:18] LABS: Phencyclidine Screen,Urine Negative ng/ml (<25)
== END 2023-06-07 23:59 ==
LOC: LAB.DROPOF 16:17
PROVIDERS: PCP Nurse Practitioner Obstetrics & Gynecology; Visit Provider Nurse Practitioner Obstetrics & Gynecology
DX: Z79.899 Other long term (current) drug therapy (principal)
CPT/HCPCS: 80307

== ENCOUNTER 2023-12-11 14:39 | Outpatient (CLI) | payer MEDICARE, SELFPAY ==
[2023-12-11 15:12] LABS: Basophils # 0.1 K/mm3 (0-0.2); Basophils % 1.4 % (0.1-2.0); Eosinophils # 0.1 K/mm3 (0.0-0.4); Hematocrit 38.3 % (37.0-47.0); Hemoglobin 13.1 g/dL (12.2-16.2); Lymphocytes # 2.3 K/mm3 (0.7-4.5); Mean Corpuscular HGB Conc 34.2 g/dL (31.8-35.4); Mean Corpuscular Hemoglobin 31.2 pg (27.0-31.2); Mean Corpuscular Volume 91.2 fl (81-99); Mean Platelet Volume 6.7 fl (7.4-10.4); Monocytes # 0.3 K/mm3 (0.1-1.0); Monocytes % 5.4 % (1.7-9.3); Neutrophils # 2.1 K/mm3 (1.8-7.8); Neutrophils % 43.2 % (37.0-80.0); Platelet Count 365 K/mm3 (142-424); Red Cell Distribution Width 14.2 % (11.5-17.5); White Blood Count 4.8 K/mm3 (4.8-10.8)
[2023-12-11 15:24] LABS: Albumin Level 4.6 g/dl (3.5-5.0); Chloride 103 mmol/L (98-107); Potassium 4.6 mmoL/L (3.5-5.1)
[2023-12-11 15:26] LABS: Blood Urea Nitrogen 10 mg/dl (7-17); Estimated Glomerular Filt Rate 85 ml/min (>60); GFR (African American) 102 ML/MIN (>60)
[2023-12-11 15:27] LABS: Alanine Aminotransferase 27 U/L (12-78); Alkaline Phosphatase 56 U/L (38-126); Aspartate Amino Transferase 38 U/L (14-36); Bilirubin,Direct 0.1 mg/dl (0.0-0.4); Bilirubin,Indirect 0.5 mg/dL (0.0-0.9); Bilirubin,Total 0.6 mg/dl (0.2-1.3); Bilirubin,Unconjugated 0.4 mg/dL (0.0-1.1); Calcium 10.3 mg/dl (8.4-10.2); Carbon Dioxide 28 mmol/L (22.0-30.0); Chol/HDL Ratio 2.4 (1-3.5); Cholesterol 228 mg/dl (140-200); Glucose 100 mg/dl (74-100); HDL Cholesterol 95 mg/dl (40-60); Total Protein,Serum 7.1 g/dl (6.3-8.2); Triglycerides 99 mg/dl (30-150); VLDL Cholesterol 20 mg/dL (0-40)
[2023-12-11 15:38] LABS: Direct LDL Cholesterol 91.97 mg/dL (100-129)
[2023-12-11 15:43] LABS: Free T4 (Free Thyroxine) 0.99 ng/dl (0.78-2.19)
[2023-12-11 16:01] LABS: Thyroid Stimulating Hormone 0.82 uIU/mL (0.465-4.68)
[2023-12-11 20:19] LABS: Anion Gap 10.6 mEq/L (5-15); Sodium 137 mmol/L (136-145)
== END 2023-12-11 23:59 | disposition home or self-care (01) ==
LOC: LAB 14:40
PROVIDERS: PCP Nurse Practitioner Family; Visit Provider Nurse Practitioner Family
DX: E78.5 Hyperlipidemia, unspecified (principal); Q24.5 Malformation of coronary vessels; I10 Essential (primary) hypertension; R79.89 Other specified abnormal findings of blood chemistry; E78.2 Mixed hyperlipidemia; J44.9 Chronic obstructive pulmonary disease, unspecified
CPT/HCPCS: 36415; 80048; 80061; 80076; 84439; 84443; 85025

== ENCOUNTER 2024-05-14 14:55 | Outpatient (CLI) | payer MEDICARE, MEDICAID, SELFPAY | END 2024-05-14 23:59 | disposition home or self-care (01) | LOC: RT 14:56 | PROVIDERS: PCP Nurse Practitioner Family; Visit Provider Internal Medicine Pulmonary Disease | DX: R06.02 Shortness of breath (principal) | CPT/HCPCS: 94010 ==

== ENCOUNTER 2024-09-17 16:31 | Outpatient (CLI) | payer MEDICARE, MEDICAID, SELFPAY ==
[2024-09-17 14:25] LABS: Microscopic, Urine URINE MICROSCOPIC (MICROSCOPIC)
[2024-09-17 15:49] LABS: Hematocrit 35.0 % (37.0-47.0); Hemoglobin 11.4 g/dL (12.2-16.2); Immature Granulocytes % 0.2 %; Mean Corpuscular HGB Conc 32.6 g/dL (31.8-35.4); Mean Corpuscular Hemoglobin 30.6 pg (27.0-31.2); Mean Corpuscular Volume 94.1 fl (81-99); Nucleated Red Blood Cells % 0 %; Platelet Count 343 K/mm3 (142-424); Red Blood Count 3.72 M/mm3 (4.20-5.40); Red Cell Distribution Width-SD 49.2 fL; White Blood Count 4.3 K/mm3 (4.8-10.8)
[2024-09-17 15:58] LABS: Bilirubin,Urine Negative (Negative); Color,Urine YELLOW (Yellow); Glucose,Urine (UA) Negative (Negative); Ketones,Urine Negative (Negative); Leukocyte Esterase,Urine 1+ (Negative); PH,Urine 7.5 (5.0-8.5); Protein,Urine Negative (Negative); Specific Gravity, Urine <= 1.005 (1.005-1.030); Urobilinogen,Urine 0.2 EU/dl (0.2)
[2024-09-17 16:09] LABS: Bacteria,Urine Trace /lpf; RBC,Urine Occasional #/hpf (0-3); Squamous Epithelial Cell,Urine Occasional #/hpf (0-5); WBC,Urine Occasional #/hpf (0-3)
[2024-09-17 16:26] LABS: Alanine Aminotransferase 39 U/L (12-78); Albumin Level 4.5 g/dl (3.5-5.0); Albumin/Globulin Ratio 1.8 (1.1-1.8); Alkaline Phosphatase 72 U/L (38-126); Anion Gap 11.4 mEq/L (5-15); Aspartate Amino Transferase 46 U/L (14-36); Bilirubin,Total 0.8 mg/dl (0.2-1.3); Blood Urea Nitrogen 10 mg/dl (7-17); Calcium 10.3 mg/dl (8.4-10.2); Carbon Dioxide 28 mmol/L (22.0-30.0); Chloride 105 mmol/L (98-107); Cholesterol 209 mg/dl (140-200); Creatinine,Serum 0.70 mg/dl (0.52-1.04); Estimated Glomerular Filt Rate 84 ml/min (>60); GFR (African American) 102 ML/MIN (>60); Globulin 2.5 g/dL (1.3-3.2); Glucose 90 mg/dl (74-100); HDL Cholesterol 107 mg/dl (40-60); Potassium 5.4 mmoL/L (3.5-5.1); Sodium 139 mmol/L (136-145); Total Protein,Serum 7.0 g/dl (6.3-8.2); Triglycerides 65 mg/dl (30-150)
--- OUTSIDE RECORDS SUMMARY | 2024-09-17 16:33 | XMS_ITS | Clinical Summary ---
Author Organization [facility] Address [address] [place] [address] Phone Care Team Providers Care Corporate Manager Name Role Phone Michael Sweet MD Primary Care Provider [phone] Social History Tobacco Use Types Packs/Day Years Used Date Smoking Tobacco: Never Assessed Comments Unknown Sex and Gender Information Value Date Recorded Sex Assigned at Not on file Legal Sex Female 10:33 AM EDT Gender Identity Not on file Sexual Orientation Not on file Plan of Treatment Health Maintenance Due Date Last Done Comments Wellness Exam Medicare 05/04/1963 Hepatitis C Screening 1978 DTaP/TDaP/Td (1 - Tdap) 05/04/1979 Cervical Cancer Screening 1981 Pap Smear 1981 HPV/Pap Cotest 1990 Cologuard 2005 Colon Cancer Screening 2005 Colonoscopy 2005 FIT 2005 Sigmoidoscopy 2005 Virtual Colonography 2005 Pneumococcal Vaccine 50+ (1 of 1 - PCV) 2010 Zoster (1 of 2) 2010 Breast Cancer Screening 07/16/2021 07/17/19 20, 06/07/2018, 05/21/2017, Additional history exists COVID-19 Vaccine ( season) 2023 Influenza Vaccine (#1) 2024 Hepatitis B Vaccine Aged Out No longe r eligible based on patient's age to complete this topic Meningococcal B Vaccine Aged Out No l onger eligible based on patient's age to complete this topic Procedures Procedure Name Priority Date/Time Associated Diagnosis Comments MM MAMMO DIGITAL DOMINIC SCREEN BILAT Routine 07/17/2019 10:20 AM EDT Encounter for screening mammogram for malignant neoplasm of breast from Last 3 Months or Most Recently Relevant to Health Maintenance Results * MM MAMMO DIGITAL DOMINIC SCREEN BILAT (07/17/2019 10:20 AM EDT) Anatomical Region Laterality Modality Breast Bilateral Mammography 07/17/2019 10:3 8 AM EDT Impressions 07/17/2019 10:38 AM EDT Negative ([id number]) ~ RECOMMENDATION: Routine screening mammogram in 1 year. ~ DISCLAIMER * Any patient with a palpable abnormality, unexplained by breast imaging, should be managed on clinical basis by the attending physician. * Breast imaging has a false negative rate of 15%. * The patient was notified by mail of the results of this examination. *The patient's information was entered into a reminder system with a target due date for the next mammogram. Narrative 07/17/2019 10:38 AM EDT Procedure:MM MAMMO DIGITAL DOMINIC SCREEN BILAT ~ Reason for exam: screening, asymptomatic. Z12.31-Encounter for screening mammogram for malignant neoplasm of [id number] ~ MM MAMMO DIGITAL DOMINIC SCREEN BILAT Bilateral CC and MLO view(s) were taken. There are scattered fibroglandular densities. Prior study comparison: Compared with prior studies the most recent being 06/07/18, 05/21/17 No mammographic evidence of malignancy. ~ Procedure Note Cristela Alejandro MD - 07/17/2019 Procedure:MM MAMMO DIGITAL DOMINIC SCREEN BILAT ~ Reason for exam: screening, asymptomatic. Z12.31-Encounter for screening mammogram for malignant neoplasm of [id number] ~ MM MAMMO DIGITAL DOMINIC SCREEN BILAT Bilateral CC and MLO view(s) were taken. There are scattered fibroglandular densities. Prior study comparison: Compared with prior studies the most recentbeing 06/07/18, 05/21/17 No mammographic evidence of malignancy. ~ IMPRESSION: Negative ([id number]) ~ RECOMMENDATION: Routine screening mammogram in 1 year. ~ DISCLAIMER * Any patient with a palpable abnormality, unexplained by breast imaging, should be managed on clinical basis by the attending physician. * Breast imaging has a false negative rate of 15%. * The patient was notified by mail of the results of this examination. *The patient's information was entered into a reminder system with atarget due date for the next mammogram. us Michael Sweet MD IM MAMMOGRAPHY ORDERABLES Ketty idania Result from Last 3 Months or Most Recently Relevant to Health Maintenance Insurance [place] [address] MEDICAID [place] Care Teams Corporate Manager Relationship Specialty Start Date End Date Michael Sweet MD [address] [place] [address] PCP - General Family Medicine 09/17/12
--- OUTSIDE RECORDS SUMMARY | 2024-09-17 16:33 | XMS_ITS | Clinical Summary ---
Author Organization [facility] Address [address] [place] [address] Care Team Providers Care Tattoo Designer Name Role Phone Michael Sweet MD Primary Care Provider Allergies No known active allergies Medications albuterol 108 (90 Base) MCG/ACT inhaler Inhale 1 puff every 4 (four) hours if needed. 9 Active Anoro Ellipta 62.5-25 MCG/INH aerosol powder Inhale 1 Inhalation 1 (one) time each day. 1 Active amLODIPine (Norvasc) 5 MG tablet Take 1 tablet (5 mg) by mouth 1 (one) time each day. 1 Active atorvastatin (Lipitor) 40 MG tablet Take 1 tablet (40 mg) by mouth 1 (one) time each day. 1 Active Premarin vaginal cream Insert 1 g into the vagina if needed. 0 Active cholecalciferol (Vitamin D-3) 50 MCG (1999 UT) capsule Take 1 capsule (2,000 Units) by mouth 1 (one) time each day. 0 Active acetaminophen (Tylenol) 500 MG tablet Take 2 tablets (1,000 mg) by mouth if needed. 8 Active alendronate (Fosamax) 70 MG tablet Take by mouth 1 (one) time per week. 2 Active phentermine (Adipex-P) 37.5 MG tablet Take 1 tablet (37.5 mg) by mouth 1 (one) time each day. 3 Active amitriptyline (Elavil) 25 MG tablet Take 1 tablet (25 mg) by mouth 1 (one) time each day. 3 Active Imiquimod 3.75 % cream Apply 1 application topically 1 (one) time each day if needed. 3 Active leflunomide (Arava) 10 MG tabletIndicatio ns:Seropositive rheumatoid arthritis of multiple sites (CMS/HCC),High risk medication use Take 2 tablets (20 mg) by mouth 1 (one) time each day. 90 tablet 1 3 Active Upadacitinib ER (Rinvoq) 15 MG tablet sustained-relea se 24 hourIndications :Seropositive rheumatoid arthritis of multiple sites (CMS/HCC) Take 1 tablet (15 mg) by mouth 1 (one) time each day. 30 tablet 3 3 Active aspirin 81 MG EC tablet 1 tablet (81 mg) 1 (one) time each day. 3 Active bisoprolol (Zebeta) 5 MG tablet Take 1 tablet (5 mg) by mouth 1 (one) time each day. Active oxyCODONE (Roxicodone) 5 MG immediate release tablet Take 1 tablet (5 mg) by mouth every 6 (six) hours if needed for moderate pain. 20 tablet 4 Active Additional Information Patient not taking.Reported on 01/15/2024 acetaminophen (Tylenol) 500 MG tablet Take 2 tablets (1,000 mg) by mouth every 6 (six) hours if needed for pain. 100 tablet 4 Active ibuprofen 600 MG tablet Take 1 tablet (600 mg) by mouth every 6 (six) hours if needed for mild pain. 50 tablet 4 Active traMADol (Ultram) 50 MG tablet Take 1 tablet (50 mg) by mouth every 6 (six) hours if needed for severe pain. 30 tablet 4 Active Additional Information Patient not taking.Reported on 01/15/2024 Active Problems Problem Noted Date Diagnosed Date Bilateral hand pain 09/04/2023 Immunizations Immunization Administration Dates Next Due PPD Skin Test (TB Skin Test) 10/15/2002 Family History Medical History Relation Name Comments Arthritis Other 1 Breast cancer Other 2 Relation Name Status Comments Other 1 Other 2 Social History Tobacco Use Types Packs/Day Years Used Date Smoking Tobacco: Former Cigarettes 1 34 1 975 - 2009 Smokeless Tobacco: Never Tobacco Cessation:Counseling Given: Not Answered Alcohol Use Standard Drinks/Week Comments No 0 (1 standard drink = 0.6 oz pure alcohol) Alcoholic Drinks/day: Never Drank Alcohol PHQ-2 Answer Date Recorded Patient Health Questionnaire-2 Score 0 12/04/2023 PHQ-2A Answer Date Recorded Depression Risk 0 05/01/2022 Comments Unknown Sex and Gender Information Value Date Recorded Sex Assigned at Not on file Legal Sex Female 8:09 PM EDT Gender Identity Not on file Sexual Orientation Not on file Last Filed Vital Signs Vital Sign Reading Time Taken Comments Blood Pressure 114/65 01/15/2024 8:58 AM EST Pulse 50 01/15/2024 8:58 AM EST Temperature 36.5 C (97.7 F) 01/15/2024 8:58 AM EST Respiratory Rate 16 01/16/2019 12:25 PM EST Oxygen Saturation 99% 01/15/2024 8:58 AM EST Inhaled Oxygen Concentration - - Weight 65.8 kg (145 lb) 01/15/2024 8:58 AM EST Height 152.4 cm (5') 01/15/2024 8:58 AM EST Body Mass Index 28.32 01/15/2024 8:58 AM EST Plan of Treatment Health Maintenance Due Date Last Done Comments [facility]-HIV Screening 1960 [facility]-Medicare Annual Wellness (AWV) 1960 [facility]-/Child/Adol SDOH Screenings 1960 [facility]- SDOH Screenings 1978 [facility]-Adult SDOH Screenings 1978 [facility]-DTaP,Tdap,and Td Vaccines (1 - Tdap) 05/04/1979 [facility]-Pap Smear 1981 [facility]-Cervical Cancer Screening 1990 [facility]-HPV/Cotest 1990 CT Colonography 2005 Colonoscopy 2005 FIT-DNA 2005 FIT 2005 FOBT 2005 Sigmoidoscopy 2005 [facility]-Colorectal Cancer Screening 2005 [facility]-RSV Vaccine: 60+ Years or (1 - Risk 60-74 years 1-dose series) 2020 [facility]-Breast Cancer Screening 07/16/202107/03, 07/17/2019, 06/07/2018, Additional history exists [facility]-Zoster Vaccines (2 of 2) 02/14/2022 12/20/2021 [facility]-Pneumococcal Vaccine: 50+ Years (2 of 2 - PCV) 09/19/2023 09/18/2022, 12/20/2015 [id number] Vaccine ( season) 2023 02/08/2021, 08/06/2020, 07/06/2020 [facility]-Influenza Vaccine (#1) 11/03/202412/20, 02/08/2021, 11/13/2019, Additional history exists [facility]-Depression Screening 12/03/2024 12/04/2023, 04/06 [facility]-Hepatitis C Screening Completed 2020, 02/09/2020, 01/16/2019, Additional history exists [facility]-Obesity Intervention Completed 024, 01/15/2024, 01/08/2024, Additional history exists HPV Vaccines Aged Out No longer eligi ble based on patient's age to complete this topic [facility]-HIB Vaccines Aged Out No longer e ligible based on patient's age to complete this topic [facility]-Hepatitis A Vaccines Aged Out No longer eligible based on patient's age to complete this topic [facility]-IPV Vaccines Aged Out No longer e ligible based on patient's age to complete this topic [facility]-Rotavirus Vaccines Aged Out No lo nger eligible based on patient's age to complete this topic Goals Goal Patient Goal Type Associated Problems Recent Progress Patient-Stated? Author Patient will demonstrate correct performance of HEP Occupational Therapy Improving( 4:59 PM EST) No Lindy Garcia OT Pt to return to all ADL, work, and leisurely tasks with minimal to no restrictions in the next 8 weeks Occupational Therapy Improving( 5:00 PM EST) No Lindy Garcia OT Procedures Procedure Name Priority Date/Time Associated Diagnosis Comments ACUTE HEPATITIS PANEL Routine 07/22/2020 12:37 PM EDT from Last 3 Months or Most Recently Relevant to Health Maintenance Results * Acute Hepatitis Panel (07/22/2020 12:37 PM EDT) Hepatitis B Surf Antigen NEGATIVE Reference Value: Negative SUNQUEST Hepatitis C Antibody NEGATIVE Reference Range: Negative SUNQUEST Hepatitis A Antibody IgM NEGATIVE Reference Value: Negative SUNQUEST External Hepatitis B Core IgM (HBCM) NEGATIVE Reference Value: Negative SUNQUEST 07/22/2020 12:3 7 PM EDT 07/22/2020 2:33 PM EDT us Vielzbieta Roy MARKETING AND PUBLIC RELATIONS MANAGER LAB BLOOD ORDERABLES Fi nal Result SUNQUEST from Last 3 Months or Most Recently Relevant to Health Maintenance Insurance MEDICAID-[place] AETNA MEDICARE Care Teams Tattoo Designer Relationship Specialty Start Date End Date Michael Sweet MD [address] [place] [id number] PCP - General 07/16/20
--- OUTSIDE RECORDS SUMMARY | 2024-09-17 16:33 | XMS_ITS | Encounter Summary ---
Author Organization [facility] Address [address] [place] [address] Care Team Providers Care Crm System Administrator Name Role Phone Michael Sweet MD Primary Care Provider [phone] Encounter Details Date Type Department Care Team (Late st Contact Info) Description 02/19/2019 Abstract DSB [facility] [address] [place] [address] Dental, Provider, DDS [address] [place], [place] [id number] Social History Tobacco Use Types Packs/Day Years Used Date Smoking Tobacco: Never Assessed Comments Unknown Sex and Gender Information Value Date Recorded Sex Assigned at Not on file Legal Sex Female 8:09 PM EDT Gender Identity Not on file Sexual Orientation Not on file documented as of this encounter Plan of Treatment Not on file documented as of this encounter Visit Diagnoses Not on filedocumented in this encounter Care Teams Crm System Administrator Relationship Specialty Start Date End Date Michael Sweet MD [address] [place] [id number] PCP - General 07/16/20 documented as of this encounter
[2024-09-17 16:40] LABS: Free T4 (Free Thyroxine) 0.98 ng/dl (0.78-2.19)
[2024-09-17 16:43] LABS: 25-OH Vitamin D, Total 23.6 ng/mL (30-100)
[2024-09-17 16:55] LABS: Thyroid Stimulating Hormone 0.68 uIU/mL (0.465-4.68)
[2024-09-17 17:11] LABS: Hepatitis C Ab Qual. W/ RFX NEGATIVE (Negative)
[2024-09-17 17:15] LABS: Vitamin B12 677 pg/mL (239-931)
[2024-09-17 19:07] LABS: Hemoglobin A1C 7.2 % (4.0-6.0)
[2024-09-18 09:06] LABS: Iron 122 ug/dL (37-170)
[2024-09-18 09:15] LABS: Total Iron Binding Capacity 306 ug/dL (265-497)
[2024-09-18 09:42] LABS: Ferritin 96.1 ng/ml (11.1-264)
== END 2024-09-17 23:59 | disposition home or self-care (01) ==
LOC: LAB.DROPOF 16:31
PROVIDERS: PCP Nurse Practitioner Family; Visit Provider Nurse Practitioner Family
DX: M81.0 Age-related osteoporosis without current pathological fracture (principal); J44.9 Chronic obstructive pulmonary disease, unspecified; M06.9 Rheumatoid arthritis, unspecified; Z87.891 Personal history of nicotine dependence; I10 Essential (primary) hypertension; Z12.31 Encounter for screening mammogram for malignant neoplasm of breast; R79.89 Other specified abnormal findings of blood chemistry; R91.1 Solitary pulmonary nodule; Z11.59 Encounter for screening for other viral diseases; Z11.4 Encounter for screening for human immunodeficiency virus [HIV]; Z13.1 Encounter for screening for diabetes mellitus; E53.8 Deficiency of other specified B group vitamins; R41.3 Other amnesia; G47.33 Obstructive sleep apnea (adult) (pediatric); D64.9 Anemia, unspecified; E78.5 Hyperlipidemia, unspecified
CPT/HCPCS: 80053; 80061; 80074; 81001; 82306; 82607; 82728; 83036; 83540; 83550; 84156; 84439; 84443; 85025; 87086; 87389

== ENCOUNTER 2024-10-13 12:45 | Outpatient (CLI) | payer MEDICARE, MEDICAID, SELFPAY ==
--- OUTSIDE RECORDS SUMMARY | 2024-10-13 12:47 | XMS_ITS | Encounter Summary ---
Author Organization [facility] Address [address] [place] [address] Care Team Providers Care Real Property Evaluator Name Role Phone Michael Sweet MD Primary Care Provider [phone] Encounter Details Date Type Department Care Team (Late st Contact Info) Description 02/19/2019 Abstract DSB [facility] [address] [place] [address] Dental, Provider, DDS [address] [place] [id number] Social History Tobacco Use Types Packs/Day Years [...] on filedocumented in this encounter Care Teams Real Property Evaluator Relationship Specialty Start Date End Date Michael Sweet MD [address] [place] [id number] PCP - General 07/16/20 documented as of this encounter
--- OUTSIDE RECORDS SUMMARY | 2024-10-13 12:47 | XMS_ITS | Clinical Summary ---
Author Organization [facility] Address [address] [place] [address] Phone Care Team Providers Care Reclamation Worker Name Role Phone Michael Sweet MD Primary Care Provider [phone] Social History Tobacco Use Types Packs/Day Years [...] EDT Impressions 07/17/2019 10:38 AM EDT Negative (NEW-[id number]) ~ RECOMMENDATION: Routine screening mammogram in 1 [...] for screening mammogram for malignant neoplasm of [id number]-CM ~ MM MAMMO DIGITAL DOMINIC SCREEN BILAT [...] for screening mammogram for malignant neoplasm of [id number]-CM ~ MM MAMMO DIGITAL DOMINIC SCREEN BILAT Bilateral CC and MLO view(s) were taken. There are scattered fibroglandular densities. Prior study comparison: Compared with prior studies the most recentbeing 06/07/18, 05/21/17 No mammographic evidence of malignancy. ~ IMPRESSION: Negative (LSS-[id number]-9) ~ RECOMMENDATION: Routine screening mammogram in 1 [...] [place] [address] MEDICAID [place] Care Teams Reclamation Worker Relationship Specialty Start Date End Date Michael Sweet MD [address] [place] [address] PCP - General Family Medicine 09/17/12
--- OUTSIDE RECORDS SUMMARY | 2024-10-13 12:47 | XMS_ITS | Clinical Summary ---
Author Organization [facility] Address [address] [place] [address] Care Team Providers Care Driver Wheelchair Name Role Phone Michael Sweet MD Primary Care Provider [phone] Allergies No known active allergies Medications albuterol [...] 0 Active cholecalciferol (Vitamin D-3) 50 MCG (2000 UT) capsule Take 1 capsule (2,000 Units) [...] Date Diagnosed Date Bilateral hand pain 09/04/2023 Encounters Date Type Department Care Team Description 09/22/2024 Telephone [facility] [address] [place] [address] Vi Zavaleta, PharmD Rinvoq Follow Up Care Plan from Last 3 Months Immunizations Immunization Administration Dates Next Due PPD [...] Health Maintenance Due Date Last Done Comments [facility]-HIV Screening 1960 [facility]-Medicare Annual Wellness (AWV) 1960 [...] of 2 - PCV) 09/19/2023 09/18/2022, 12/20/2015 [id number] Vaccine ( season) 2023 02/08/2021, 08/06/2020, 07/06/2020 [...] Improving( 4:59 PM EST) No Lindy Garcia C, OT Pt to return to all ADL, work, and leisurely tasks with minimal to no restrictions in the next 8 weeks Occupational Therapy Improving( 5:00 PM EST) Lindy Grajeda OT Procedures Procedure Name Priority Date/Time Associated [...] 7 PM EDT 07/22/2020 2:33 PM EDT Vi Roy COMMERCIAL LINES ACCOUNT ASSISTANT LAB BLOOD ORDERABLES Fi nal Result SUNQUEST from Last 3 Months or Most Recently Relevant to Health Maintenance Insurance [place] AET[place] MEDICARE Care Teams Driver Wheelchair Relationship Specialty Start Date End Date Michael Sweet MD [address] [place], [place] [id number] PCP - General 07/16/20
--- OUTSIDE RECORDS SUMMARY | 2024-10-13 12:47 | XMS_ITS | Encounter Summary ---
Author Organization [facility] Address [address] [place] [address] Care Team Providers Care Mechanical Cad Designer Name Role Phone Michael Sweet MD Primary Care Provider [phone] Reason for Visit * Reason Onset Date Comments Rinvoq Follow Up Care Plan 09/22/2024 Encounter Details Date Type Department Care Team (Late st Contact Info) Description 09/22/2024 Telephone [facility] [address] [place] [id number] Vi Zavaleta, PharmD Rinvoq Follow Up Care Plan Social History Tobacco Use Types Packs/Day Years Used Date Smoking Tobacco: Former Cigarettes 1 34 1 975 - 2008 Smokeless Tobacco: Never Alcohol Use Standard Drinks/Week Comments No 0 [...] on file documented as of this encounter Miscellaneous Notes * Telephone Encounter - Vi Zavaleta, PharmD - 09/22/2024 9:55 AM EDT [facility] Follow Up Care Plan Tracey Garcia is a 64 y.o. female assessed via phone for continuation of drug therapy Rinvoq for diagnosis RA. Therapeutic Category: Rheumatoid Arthritis Chart Review Allergies: Patient has no known allergies. Current Outpatient Medications Medication Instructions acetaminophen (TYLENOL) 1,000 mg, As needed acetaminophen (TYLENOL) 1,000 mg, Oral, Every 6 hours PRN albuterol 108 (90 Base) MCG/ACT inhaler 1 puff, Every 4 hours PRN alendronate (Fosamax) 70 MG tablet Weekly amitriptyline (ELAVIL) 25 mg, Daily amLODIPine (Norvasc) 5 MG tablet 1 tablet, Daily Anoro Ellipta 62.5-25 MCG/INH aerosol powder 1 puff, Daily aspirin 81 mg, Daily atorvastatin (Lipitor) 40 MG tablet 1 tablet, Daily bisoprolol (ZEBETA) 5 mg, Daily cholecalciferol (VITAMIN D-3) 2,000 Units, Daily ibuprofen 600 mg, Oral, Every 6 hours PRN Imiquimod 3.75 % cream 1 application., Daily PRN leflunomide (ARAVA) 20 mg, Oral, Daily oxyCODONE (ROXICODONE) 5 mg, Oral, Every 6 hours PRN phentermine (ADIPEX-P) 37.5 mg, Daily Premarin 1 g, As needed Rinvoq 15 mg, Oral, Daily traMADol (ULTRAM) 50 mg, Oral, Every 6 hours PRN Problem List[1] Immunization History Administered Date(s) Administered Moderna COVID-19 Vaccine (Color Dipper) 12+ years 07/06/2020, 08/06/2020, 02/08/2021 PPD Skin Test (TB Skin Test) 10/15/2002 Selected lab results: Lab Results Component Value Date WBC 5.11 05/01/2022 HGB 13.3 05/01/2022 HCT 40.8 05/01/2022 PLT 373 (H) 05/01/2022 , Lab Results Component Value Date NA 142 08/24/2021 K 4.7 08/24/2021 CL 106 08/24/2021 CREATININE 0.81 05/01/2022 BUN 14 08/24/2021 GLUCOSE 106 (H) 08/24/2021 CALCIUM 10.1 08/24/2021 CO2 26 08/24/2021 , and Lab Results Component Value Date ALBUMIN 4.5 05/01/2022 ALKPHOS 61 05/01/2022 ALT 28 05/01/2022 AST 32 05/01/2022 BILITOT 0.5 05/01/2022 Patient profile review for changes in Medications, Allergies, Conditions, Vaccinations? Reviewed - no changes Medication reconciliation - review all current medications including prescriptions, PTC, herbals, and supplements with the patient? Completed Is this an infusion therapy? No Patient is treatment: Rinvoq since 2018 Is patient of child bearing potential? No Disease specific labs or assessments: see above Does patient have an active infection? None Drug Review Patient drug therapy initiated: Rinvoq 15mg daily Is the patient taking concomitant therapy for this disease? Yes: Leflunomide Drug assessment : is this the appropriate drug/dose/route/frequency/duration? Yes Drug utilization review Drug-disease precautions: No clinically significant issues identified Drug-drug interactions: No clinically significant issues identified Drug-patient precautions: No clinically significant issues identified Adherence summary: What percent of doses did the patient miss in the past 4 weeks? No missed doses Therapeutic benefit summary: Patient is achieving benefit Patient's therapy is appropriate to: Continue Education and Counseling Education & counseling was deferred on disease education including an overview of the condition, its progression and potential complications, associated comorbidities, prevention strategies, goals of therapy, and treatment and therapy management. Education & counseling was deferred on medication(s) including REMS/Black box warnings, proper use, timely administration or intake, missed dose instructions, potential side effects, contraindications, safety and handling precautions, storage and disposal guidelines, and general warnings and precautions. Education & counseling was deferred on adherence including the importance of adherence and adherence management strategies. Medication specific education provided: Patient had no medication related questions or concerns at time of assessment. Patient did ask when next MD visit is, which due to outside provider [facility] stated patient will need to call the office. Monitoring Questions Patient reported outcomes: Do you feel comfortable administering your medication and following the treatment plan as prescribed? Yes If therapy is injectable, does patient require further injection training? N/A How would you rate your pain on average? (0 = no pain, 10 = worst pain imaginable) 5 On a scale from 1 to 10, with 10 being very well and 1 being very poor, how are you feeling overall? 6 PREVIOUS quality of life: 5 How satisfied are you with the ongoing education and counseling you receive regarding your health condition, on a scale of 1 to 5, with 5 being completely satisfied and 1 being dissatisfied? CURRENT patient management score: 5-Completely Satisfied PREVIOUS patient management score: 5-Completely Satisfied Patient Management Assessment scores must be reviewed by a clinician with each Care Plan. Scores of2 or lower must be documented in a Clinical Intervention Care Plan. Missed doses: Have you missed a dose in the last 4 weeks? No Patient reported response to therapy In regards to your condition, how are you feeling compared to the last time we spoke? No change Disease symptoms assessment Has the patient been seen for planned or unplanned healthcare visit in the last 4 weeks? No Has the patient missed any days from work, school, or planned activities in the past 4 weeks due totheir disease? No Care Plan Questions Goal(s) of therapy: Improving or maintaining quality of life and Control signs and symptoms of disease Strategies to achieve goal(s) of therapy: Adhere to plan of care (drug therapy), Comply to lab tests/imaging, Comply to follow up appointments, and Share concerns about drug therapy or side effects with care team Identified barrier(s) to care/intervention problem type: No problems identified (No barriers to care or risks associated with medication storage and handling identified) Mitigation strategy for identified barriers: N/A Outcome of Clinical Intervention: Intervention not needed Outcomes of previous adverse events/side effects: None Current adverse events/side effects patient is experiencing: No adverse events/side effects Counseled patient on selected side effects: Deferred Summary/Plan Pharmacist reviewed the plan of care in regards to specialty medication Rinvoq for diagnosis of Rheumatoid Arthritis. Patient will continue therapy.. Anticipated filling pharmacy is: Specialty Pharmacy and location of administration will be patient's home Plan/Patient specific needs: Patient reports adherence to therapy plan with no missed doses. Patient says she has not had any flares recently, but does have a baseline level of pain/stiffness that ismanageable. Patient says pain is worse at night when she has to be still and cannot get comfortable. She uses extra strength tylenol to manage pain. QOL is 6/10. Patient/caregiver participated in the development and agreed to the plan of care. Patient/caregiverhad no additional questions or concerns for the care team. Patient/caregiver voiced understanding of the goals with the regimen and agreed to attend follow up appointments to assess progress toward their goal. The plan of care will be reviewed at least annually, or more often if there is a need. The patient agrees with all elements of the care plan: Yes Vielzbieta Zavaleta PharmD 09/22/2024 10:01 AM [1] Patient Active Problem List Diagnosis Bilateral hand pain documented in this encounter Plan of Treatment Not on file documented as of this encounter Goals Goal Patient Goal Type Associated Problems Recent Progress Patient-Stated? Author Patient will demonstrate correct performance of HEP Occupational Therapy Improving( 4:59 PM EST) No Lindy Garcia OT Pt to return to all ADL, work, and leisurely tasks with minimal to no restrictions in the next 8 weeks Occupational Therapy Improving( 5:00 PM EST) No Lindy Garcia OT documented as of this encounter Visit Diagnoses Not on filedocumented in this encounter Additional Health Concerns Assessment Noted Time A fall risk assessment has been complete d for the patient 12/04/2023 8:23 AM EDT A Body Mass Index follow-up plan has been documented for the patient 01/15/2024 5:14 PM EST documented as of this encounter Care Teams Mechanical Cad Designer Relationship Specialty Start Date End Date Michael Sweet MD [address] [place] [address] PCP - General 07/16/20 documented as of this encounter
--- OUTSIDE RECORDS SUMMARY | 2024-10-13 12:47 | XMS_ITS | Patient Health Record ---
Author Organization [facility] Address [address] [place] [id number] Care Team Providers Care Motel Keeper Name Role Phone [facility] Primary Care Provider Johana Ceja Unavailable [phone] Allergies No Known Allergies Results Component Value Reference Range Notes Flu/COVID Rapid Antigen (IH) Reviewed date:07/24/2024 09:22:51 AM Interpretation: Performing Lab: Notes/Report: Flu A neg Negative - Positive Flu B positive Negative - Positive SARS CoV 2 neg Negative - Positive Reason For Referral No Information Medications Medication SIG (Take, Route, Frequency, Duration) Notes Start Date End Date Status Bisoprolol Fumarate 5 MG Oral Active Rinvoq 15 MG Oral Active Atorvastatin Calcium 40 MG TAKE ONE TABL ET BY MOUTH EVERY DAY Oral Active amLODIPine Besylate 5 MG Oral Active Ondansetron HCl 4 MG 1 tablet Orally every 6 hours; Duration: 3 days As needed for nausea 07/24/2024 Active Fluticasone Propionate 50 MCG/ACT 1 spray in each nostril Nasally Twice a day; Duration: 30 days 07/24/2024 Active Amoxicillin-Pot Clavulanate 875-125 MG 1 tablet Orally every 12 hrs; Duration: 10 days 07/24/2024 Active Social History Tobacco Use: Social History Observation Description Date Details (start date - stop date) Former Smoker 07/04/1975 - 07/03/2004 Tobacco Control (Standard) Question Answer Notes Tobacco use: Former smoker When did you start smoking? 07/04/1975 When did you stop smoking? 07/03/2004 How long has it been since y ou last smoked? Greater than 10 years Additional Findings: Tobacco user Heavy cigarett e smoker (20-39 cigs/day) Problems Problem Type SNOMED Code ICD Code Onset Dates Problem Status W/U Status Risk Notes Problem Sleep apnea (68545510) Sleep apnea (G47.30) Active confirmed Problem Hypertension (37524841) Hypertension (I10) Active confirmed Problem Osteoarthritis (593079319) Osteoarthritis (M19.90) Active confirmed Problem Rheumatoid aortitis (13065255) Rheumatoid aortitis (I01.1) Active confirmed Vital Signs Temperature 98.4 degrees Fahrenheit 07/24/2024 Respiratory Rate 18 /min 07/24/2024 Blood pressure diastolic 58 mm Hg 07/24/2024 Height 060 in 07/24/2024 Blood pressure systolic 124 mm Hg 07/24/2024 Weight 133 lbs 07/24/2024 BMI 25.97 kg/m2 07/24/2024 Procedures Procedure Date Ordered Date Performed Result Body Sit e PULSE OXIMETER MEASURE BLOOD OXYGEN LEVEL 07/24/2024 07/24/2024 N/A Encounters Encounter Location Date Provider Diagnosis [id number] [facility] [address] [place] [address] 07/24/2024 Johanakevin Gould Influenza B J10.1 ; Otitis media of left ear H66.92 ; Sore throat J02.9 ; Sinus congestion R09.81 ; Nausea R11.0 ; Acute cough R05.1 ; Fever R50.9 ; Encounter for screening for COVID-19 Z11.52 and Elevated blood pressure reading R03.0 Assessments Encounter Date Diagnosis (ICD Code) Assessment Notes Treatment Notes Treatment Clinical Notes Section Notes 07/24/2024 Otitis media of left ear (ICD-10 - H66.92) Ear Infection (Otitis Media): Care Instructions material was published 07/24/2024 Influenza B (ICD-10 - J10.1) Visit summary given to and discussed with patient and/or parent who verbalizes understanding and agreement with plan of care. Thank you for your visit. Please look for the satisfaction survey that you will receive via email. We look forward to receiving your feedback regarding your experience at [facility]. Complete the entire course of antibiotics as prescribed, even when symptoms have improved, to prevent a relapse of infection and the development of antibiotic resistance. Monitor your blood pressure as it should be less than 120/80. Patient reports a history of yeast infection symptoms secondary to antibiotic usage. If symptoms develop patient may start Diflucan as prescribed. Patient instructed to avoid the use of NSAIDS (such as: Motrin, Ibuprofen, Advil, naproxen, Aleve, Celebrex, Diclofenac) while taking oral steroids.Symptoms appear viral in nature. If symptoms persist or worsen greater than 2-3 days, follow up in the clinic or with PCP for further evaluation. Go to the emergency room for shortness of breath, chest pain, or any other emergent type symptoms. Push liquids such as water and electrolyte drinks to stay hydrated. , Influenza (Flu): Care Instructions material was published Oral steroids can make you feel jittery and/or irritable. Recommended to take with food. 07/24/2024 Sore throat (ICD-10 - J02.9) Sore Throat: Care Instructions material was published 07/24/2024 Sinus congestion (ICD-10 - R09.81) 07/24/2024 Nausea (ICD-10 - R11.0) Nausea and Vomiting: Care Instructions material was published 07/24/2024 Acute cough (ICD-10 - R05.1) Cough: Care Instructions material was published 07/24/2024 Fever (ICD-10 - R50.9) Fever: Care Instructions material was published 07/24/2024 Encounter for screening for COVID-19 (ICD-10 - Z11.52) 07/24/2024 Elevated blood pressure reading (ICD-10 - R03.0) 07/24/2024 Other Amoxicillin and Clavulanic Acid material was published, Fluconazole material was published, Fluticasone Nasal Mason material was published, Ondansetron material was published, Prednisone material was published, Dextromethorphan material was published, Pseudoephedrine material was published, Brompheniramine material was published, DASH Diet: Care Instructions material was published, Learning About High Blood Pressure material was published, Learning About Healthy Weight material was published, Body Mass Index: Care Instructions material was published Plan Of Treatment No Information Insurance Providers Payer Name Payer Address Payer Phone Subscriber Number Group Number Insured Name Patient Relationship to Insured Coverage Start Date Coverage End Date [employer] [address] [address] [place] [phone] [id number] Tracey Garcia Self - patient is the insured MEDICA[place] [address] [place] [address] [id number] Tracey Garcia Self - patient is the insured Medical (General) History Medical History History ICD Code Sleep apnea G47.30 Hypertension I10 Osteoarthritis M19.90 Rheumatoid aortitis I01.1 Surgical History Surgery Date(Month/Year) Hand - R 11/2023 Rotator Cuff repair -L 2019 Knee replacement - R 12/2017
--- NOTE | 2024-10-13 13:45 | XR_ITS ---
FINAL REPORT CLINICAL HISTORY: osteoporosis COMPARISON: 07/08/2021 FINDINGS: Using L1-4, the bone mineral density of the spine is 0.730 g/cm2, corresponding to T-score of -2.9, compatible with osteoporosis. Previously was 0.758 with a T-score of -2.6. Using the left hip, the bone mineral density of the total hip is 0.573 g/cm2, corresponding to a T-score of -3.0, compatible with osteoporosis. Previously was 0.603 with a T-score of -2.8. Using the right hip, the bone mineral density of the femoral neck is 0.563 g/cm2, corresponding to a T-score of -2.6, compatible with osteoporosis. Previously was 0.539 with a T-score of-2.8. FRAX not reported because some T-score at or below -2.5. NOTE: T-score: Standard deviation compared with peak bone mass of young adult mean. *Following the recommendations of the International Society of Bone densitometry, classification of hip BMD is based on the lower of two T-scores; total hip or femoral neck. IMPRESSION: Diminished bone mineral density consistent with osteoporosis. Reviewed, Interpreted and Dictated by Andrew Salvador MD Transcribed by Nazia Blanc Authenticated and [facility]
--- NOTE | 2024-10-13 14:00 | CT_ITS ---
FINAL REPORT TECHNIQUE: Thin section axial images were obtained through the lungs using a low-dose technique per lung cancer screening protocol. Reconstruction images were obtained using the axial data. Exam was performed using dose reduction technique. CLINICAL HISTORY: lung cancer screening FORMER SMOKER QUIT 20 YEAR AGO 1.5PPD X23 YEARS COMPARISON: 07/08/2021 FINDINGS: CTDLvol: 2.90 DLP: 99.77 Former smoker 23 pack year history Lungs: No acute pulmonary abnormality. Posterior right apical nodule seen on series 4 image 10 is unchanged. There is also a subpleural right upper lobe 4 mm nodule on series 4 image 17 which is unchanged. No new mass or nodule is identified. Lymph nodes: In the anterior mediastinum is a lymph node which has increased in size now measuring 14 mm, previously measured 9 mm. No other lymphadenopathy is seen. Mediastinum: Heart size is normal. Pleura/pericardium: No pleural or pericardial effusion. Other: There are prominent coronary artery calcifications. No acute abnormality in the upper abdomen. IMPRESSION: Stable 4 mm right upper lobe pulmonary nodules. No new mass or nodule. Prominent coronary artery calcifications. Lung RADS: 2S Recommendation: 1 year follow-up. Reviewed, Interpreted and Dictated by Apoorva Almeida MD Transcribed by Joselyn Sierra Authenticated and [facility]
--- NOTE | 2024-10-13 14:30 | MM_ITS ---
PROCEDURE INFORMATION: Exam: MG Bilateral Screening 3D Mammography Exam date and time: 10/13/2024 1:23 PM Age: 64 years old Clinical indication: Screening examination TECHNIQUE: Imaging protocol: Bilateral Screening tomosynthesis and 2D mammography including computer-aided detection (CAD) when performed. COMPARISON: 1. MG MM DIG SCREENING MAMM BI W/CAD 09/20/2022 3:44 PM 2. MG MM DIG SCREENING MAMM BI W/CAD 09/16/2021 9:52 AM FINDINGS: MAMMOGRAPHY: Breast composition: There are scattered areas of fibroglandular density. Mass: None. Architectural distortion: None. Calcifications: No suspicious calcifications. Asymmetric density: None. Skin thickening: None. Axillary adenopathy: None. IMPRESSION: No mammographic evidence of malignancy. Annual screening is recommended unless otherwise clinically indicated. ASSESSMENT: BI-RADS Category 1: Negative.
== END 2024-10-13 23:59 | disposition home or self-care (01) ==
LOC: RAD 12:45
PROVIDERS: PCP Nurse Practitioner Family; Visit Provider Nurse Practitioner Family
DX: Z12.31 Encounter for screening mammogram for malignant neoplasm of breast (principal); R92.323 Mammographic fibroglandular density, bilateral breasts; Z12.2 Encounter for screening for malignant neoplasm of respiratory organs; R91.8 Other nonspecific abnormal finding of lung field; M81.0 Age-related osteoporosis without current pathological fracture; Z87.891 Personal history of nicotine dependence
CPT/HCPCS: 71271; 77063; 77067; 77080

== ENCOUNTER 2025-01-20 09:56 | Outpatient (CLI) | payer MEDICARE, MEDICAID, SELFPAY ==
--- NOTE | 2025-01-20 15:15 | CT_ITS ---
FINAL REPORT TECHNIQUE: Thin section axial images were obtained from the lung apices through the upper abdomen without contrast. This study was performed with techniques to keep radiation doses as low as reasonably achievable (ALARA). Individualized dose reduction techniques using automated exposure control or adjustment of mA and/or kV according to the patient's size were employed. CLINICAL HISTORY: nodule COMPARISON: CT low-dose 10/13/2024 FINDINGS: There is no axillary or hilar lymphadenopathy. Stable mildly enlarged anterior mediastinal lymph node measures 14 mm.. No pleural or pericardial effusion. Prominent coronary artery calcifications. There is a stable posterior right apical nodule measuring 4 mm on series 2 image 14. A subpleural right upper lobe nodule measuring 4 mm on series 2 image 22 is also stable. No new nodules or masses identified. No consolidations. Limited, unenhanced evaluation of the upper abdomen demonstrates a small left adrenal nodule, stable and may be an adenoma. There is also a stable small hypodense right renal lesion. No acute findings.. Stable compression deformity of the mid thoracic vertebral body.. IMPRESSION: Stable less than 5 mm right lung nodules. Stable anterior mediastinal lymph node. No new abnormality. Reviewed, Interpreted and Dictated by Apoorva Almeida MD Transcribed by Nazia Blanc Authenticated and [facility]
== END 2025-01-20 23:59 | disposition home or self-care (01) ==
LOC: RT 09:57
PROVIDERS: PCP Nurse Practitioner Family; Visit Provider Internal Medicine Pulmonary Disease
DX: R91.8 Other nonspecific abnormal finding of lung field (principal); R59.0 Localized enlarged lymph nodes
CPT/HCPCS: 71250